=== PATIENT | female | born 1940 ===

== ENCOUNTER → 2020-09-15 20:11 | Outpatient (CLI) | payer MEDICARE, SELFPAY ==
[2020-09-15 21:58] LABS: Hemoglobin A1C 6.5 % (4.0-6.0)
== END ==
PROVIDERS: Visit Provider Family Medicine
DX: N18.2 Chronic kidney disease, stage 2 (mild) (principal); R73.9 Hyperglycemia, unspecified
CPT/HCPCS: 83036